=== PATIENT | male | born 1990 | race African-American/Black ===

== ENCOUNTER 2021-05-18 01:49 | Emergency (ER) | payer MEDICAID ==
[~2021-05-18] VITALS: Ht 182.9 cm; Wt 94.0 kg
--- NOTE | 2021-05-18 02:24 | PHYS DOC ---
General Adult EDM: Chief Complaint: UPPER EXTREMITY PAIN HPI: HPI: ".. I fell Tuesday... Off a skateboard hurt his left arm... Still hurting.. I am from [facility]..and just moved here because it is cooler.. Patient is a 30 year old male who presents with above hx and Lt. forearm injury. Pt. describe injury as hyper extended with out stretched arm as he attempted to catch him self in a fall. Pt.denies other injury in the fall. Pt. distal neurovascular intact. Flexion at the elbow, supination and pronation exacerbates pain in his left forearm. Patient is right-hand dominant. Patient does have a past medical history of hx. MS-that is exacerbated by heat. Patient not on any immunosuppressants currently for his MS. Review of Systems: Review of Systems: Constitutional: Denies fever or chills Eyes: Denies change in visual acuity HENT: Denies nasal congestion or sore throat Respiratory: Denies cough or shortness of breath Cardiovascular: Denies chest pain or edema GI: Denies abdominal pain, nausea, vomiting, bloody stools or diarrhea : Denies dysuria Musculoskeletal: Complains of left forearm pain Integument: Denies rash Neurologic: Denies headache, focal weakness or sensory changes Endocrine: Denies polyuria or polydipsia Lymphatic: Denies swollen glands Psychiatric: Denies depression or anxiety Family History: Family History: Noncontributory to presentation Current Medications: Current Meds: See nursing for home meds Allergies: Allergies: Allergies Coded Allergies Type Severity Reaction Last Updated Verified Penicillins Allergy Severe Rash 05/18/21 Yes Physical Exam: PE: Constitutional: Well developed, well nourished, moderate distress, non-toxic appearance. [] HENT: Normocephalic, atraumatic, bilateral external ears normal, oropharynx moist, no oral exudates, nose normal. [] Eyes: PERRLA, EOMI, conjunctiva normal, no discharge. [] Neck: Normal range of motion, no tenderness, supple, no stridor. [] Cardiovascular:Heart rate regular rhythm, no murmur [] Lungs & Thorax: Bilateral breath sounds equal at apex on auscultation [] Abdomen: Bowel sounds normal, soft, no tenderness, no masses, no pulsatile masses. [] Skin: Warm, dry, no erythema, no rash. [] Back: No tenderness, no CVA tenderness. [] Extremities: No tenderness, no cyanosis, no clubbing, ROM intact, no edema. Except findings seen left forearm as per HPI Neurologic: Alert and oriented X 3, normal motor function, normal sensory function, no focal deficits noted. [] Psychologic: Affect anxious, judgement normal, mood normal. [] EKG: EKG: [] Radiology/Procedures: Radiology/Procedures: [][address] [address] IMAGING REPORT Signed PATIENT: ELISA TAN NACCOUNT: [id number] : 1990 LOCATION: ER AGE: 30 SEX: M EXAM STATUS: DEP ER ORD. PHYSICIAN: JAY GAMINO MD REASON: TRAUMA, FELL 05-16-21, ENTIRE FOREARM PAIN PROCEDURE: FOREARM LEFT XR FOREARM_LEFT 2 VIEWS DATE: 05/18/2021 2:59 AM INDICATION: Reason: TRAUMA, FELL 05-16-21, ENTIRE FOREARM PAIN / Spl. Instructions: / History: COMPARISON: None. FINDINGS: Bones: There is no evidence of acute fracture. No joint dislocation is noted. Miscellaneous: None. IMPRESSION: No evidence of acute fracture. Electronically signed by: Shannen Welch MD (05/18/2021 5:54 AM) [facility] DICTATED AND SIGNED BY: SHANNEN WELCH MD DATE: 05/18/21 0554 CC: JAY GAMINO MD; PCP,NO ~MTH0 0 Heart Score: C/O Chest Pain: N/A Risk Factors: Risk Factors: DM, Current or recent (<one month) smoker, HTN, HLP, family history of CAD, obesity. Risk Scores: Score 0 - 3: 2.5% MACE over next 6 weeks - Discharge Home Score 4 - 6: 20.3% MACE over next 6 weeks - Admit for Clinical Observation Score 7 - 10: 72.7% MACE over next 6 weeks - Early Invasive Strategies Course & Med Decision Making: Course & Med Decision Making Pertinent Labs and Imaging studies reviewed. (See chart for details) Patient is ice packs as needed. Take Tylenol and ibuprofen for pain. Wear arm in sling. Wear Marco wrap.. Consider vipul-ray in 2 weeks if no improvement. Fol low-up primary care. Return if any concerns. Impression: 1. Left forearm strain and contusion [] Adal Disclaimer: Adal Disclaimer: This electronic medical record was generated, in whole or in part, using a voice recognition dictation system. Departure Departure: Referrals: PCP,NO (PCP) Adal Disclaimer This chart was dictated in whole or in part using Voice Recognition software in a busy, high-work load, and often noisy Emergency Department environment. It may contain unintended and wholly unrecognized errors or omissions. JAY GAMINO MD May 18, 2021 02:24
[2021-05-18] MEDS ORDERED: HYDROcodon/IBUPROFEN 7.5/200MG 1 TAB TABLET PO ONE (02:45)
[2021-05-18 04:30] VITALS: BP 129/71
--- NOTE | 2021-05-18 05:57 | RAD ---
XR FOREARM_LEFT 2 VIEWS DATE: 05/18/2021 2:59 AM INDICATION: Reason: TRAUMA, FELL 05-16-21, ENTIRE FOREARM PAIN / Spl. Instructions: / History: COMPARISON: None. FINDINGS: Bones: There is no evidence of acute fracture. No joint dislocation is noted. Miscellaneous: None. IMPRESSION: No evidence of acute fracture. Electronically signed by: Angel Unger MD (05/18/2021 5:54 AM) IVONNE
== END 2021-05-18 04:30 | disposition home or self-care (01) ==
LOC: ER 01:49
DX: S56.912A Strain of unspecified muscles, fascia and tendons at forearm level, left arm, initial encounter (principal); Z88.0 Allergy status to penicillin; W18.39XA Other fall on same level, initial encounter; Y93.89 Activity, other specified; Y92.89 Other specified places as the place of occurrence of the external cause; Y99.8 Other external cause status
CPT/HCPCS: 73090; 99283

== ENCOUNTER 2021-09-11 08:39 | Emergency (ER) | payer MEDICAID, OTHER ==
[~2021-09-11] VITALS: Ht 182.9 cm; Wt 95.4 kg
[2021-09-11 08:53] VITALS: BP 136/82
--- NOTE | 2021-09-11 09:15 | PHYS DOC ---
Past History Past Medical History: Other Additional Past Medical Histor: MS Past Surgical History: No Surgical History Alcohol Use: None General Adult EDM: Chief Complaint: BACK PAIN - NO INJURY HPI: HPI: Patient is a 22-year-old male coming in for bilateral thoracic back pain. Patient states that he had a cold that started about 2 weeks ago which has resolved but had a lot of coughing. Had the pain at the time but the pain is not going away. Is been taking Tylenol without improvement. No other complaints. Denies any heavy lifting or trauma Review of Systems: Review of Systems: All other systems within normal limits except for as noted in the HPI Allergies: Allergies: Allergies Coded Allergies Type Severity Reaction Last Updated Verified Penicillins Allergy Severe Rash 09/11/21 Yes Physical Exam: PE: Constitutional: Well developed, well nourished, no acute distress, non-toxic appearance. [] HENT: Normocephalic, atraumatic, bilateral external ears normal, nose normal. [] Eyes: PERRLA, conjunctiva normal, no discharge. [] Neck: No rigidity, supple, no stridor. [] Cardiovascular: Regular rate and rhythm, brisk cap refill [] Lungs & Thorax: Non labored symmetric respirations, no tachypnea or respiratory distress [] Abdomen: Soft, nondistended. Skin: Warm, dry, no erythema, no rash. [] Back: Unremarkable, no spine tenderness. Bilateral paraspinous tenderness in lower thoracic region Extremities: No deformities, range of motion grossly intact, no lower extremity edema [] Neurologic: Alert and oriented X 3, no focal deficits noted. [] Psychologic: Affect normal, judgement normal, mood normal. [] Current Patient Data: Vital Signs: Vital Signs Date Time Temp Pulse Resp B/P (MAP) Pulse Ox O2 Delivery O2 Flow Rate FiO2 09/11/21 08:53 97.9 60 18 136/82 (100) 100 Room Air EKG: EKG: [] Radiology/Procedures: Radiology/Procedures: [address] [address] IMAGING REPORT Signed PATIENT: ELISA TAN NACCOUNT: [id number] : 1990 LOCATION: ER AGE: 30 SEX: M EXAM STATUS: REG ER ORD. PHYSICIAN: MITZI CHAO MD REASON: BACK PAIN WITH FEELING SICK X 1 WEEK AGO PROCEDURE: CHEST PA & LATERAL XR CHEST 2V History: Reason: BACK PAIN WITH FEELING SICK X 1 WEEK AGO / Spl. Instructions: / History: Comparison: None. Findings: No consolidation or pleural effusion. Normal heart size. No pneumothorax. Impression: 1. No acute cardiopulmonary process. Electronically signed by: Rajiv Linag DO (09/11/2021 9:27 AM) [id number] DICTATED AND SIGNED BY: RAJIV LIANG DO DATE: 09/11/21925 CC: MITZI CHAO MD; PCP,NO ~MTH0 0 [] Heart Score: C/O Chest Pain: No Risk Factors: Risk Factors: DM, Current or recent (<one month) smoker, HTN, HLP, family history of CAD, obesity. Risk Scores: Score 0 - 3: 2.5% MACE over next 6 weeks - Discharge Home Score 4 - 6: 20.3% MACE over next 6 weeks - Admit for Clinical Observation Score 7 - 10: 72.7% MACE over next 6 weeks - Early Invasive Strategies Course & Med Decision Making: Course & Med Decision Making Pertinent Labs and Imaging studies reviewed. (See chart for details) [] Adal Disclaimer: Adal Disclaimer: This electronic medical record was generated, in whole or in part, using a voice recognition dictation system. Departure Departure: Impression: Primary Impression: Back pain Disposition: HOME / SELF CARE / HOMELESS Condition: IMPROVED Referrals: PCP,NO (PCP) Patient Instructions: Back Pain in Scripts Cyclobenzaprine Hcl (CYCLOBENZAPRINE HCL) 10 Mg Tablet 1 TAB PO TID for back pain for 5 Days, #15 TAB Prov: MITZI CHAO MD 09/11/21 MITZI CHAO MD Sep 11, 2021 09:15
--- NOTE | 2021-09-11 09:30 | RAD ---
XR CHEST 2V History: Reason: BACK PAIN WITH FEELING SICK X 1 WEEK AGO / Spl. Instructions: / History: Comparison: None. Findings: No consolidation or pleural effusion. Normal heart size. No pneumothorax. Impression: 1. No acute cardiopulmonary process. Electronically signed by: Rajiv Otero DO (09/11/2021 9:27 AM) [id number]
[2021-09-11] MEDS ORDERED: CYCL-331 PO (09:38)
[2021-09-11] MEDS ORDERED: ORPHENADRINE CITRATE 60 MG/2 ML VIAL. IM ONE (09:45)
== END 2021-09-11 09:55 | disposition home or self-care (01) ==
LOC: ER 08:39
DX: M54.6 Pain in thoracic spine (principal); Z88.0 Allergy status to penicillin
CPT/HCPCS: 71046; 96372; 99283; J2360